=== PATIENT | male | born 1960 | race Caucasian/White ===

== ENCOUNTER 2023-09-17 06:15 | Day surgery (SDC) | payer BC ==
[2023-09-16 10:58] VITALS: BMI 29.0
[2023-09-17] MEDS ORDERED: Protamine Sulfate 50 MG/5 ML VIAL ONE (06:46)
[2023-09-17] MEDS ORDERED: Heparin 10,000 UNITS/ 10 ML VIAL ONE (06:46)
[2023-09-17] MEDS ORDERED: fentaNYL 50 mcg/mL 1 mL Vial ONE ×2 (07:25→09:08)
[2023-09-17] MEDS ORDERED: PROPOFOL 200 MG/20 ML VIAL ONE (07:46)
[2023-09-17] MEDS ORDERED: PHENYLEPHRINE-NS 100 MCG/ML 10 ML SYRINGE ONE (07:46)
[2023-09-17] MEDS ORDERED: Lidocaine 1% PF 5 ML VIAL ONE (07:46)
[2023-09-17] MEDS ORDERED: Dexamethasone 20 MG/5 ML VIAL ONE (07:46)
[2023-09-17] MEDS ORDERED: NEOSTIGMINE 3 MG/3 ML SYR 3 MG/3 ML SYRINGE ONE (07:46)
[2023-09-17] MEDS ORDERED: Glycopyrrolate 0.2 MG/ML 5 ML SYRINGE ONE (07:46)
[2023-09-17] MEDS ORDERED: Rocuronium Bromide 10 MG/ML (10ML VIAL) ONE (07:46)
[2023-09-17] MEDS ORDERED: Ondansetron PF 4 MG/2 ML Vial ONE (07:46)
== END 2023-09-17 10:40 | disposition home or self-care (01) ==
LOC: SDC 06:15
PROVIDERS: ATTEND Internal Medicine Cardiovascular Disease
PROC: 02583ZZ Destruction of Conduction Mechanism, Percutaneous Approach (ICD-10-PCS; principal; 2023-09-17)
DX: I48.3 Typical atrial flutter (principal); I48.0 Paroxysmal atrial fibrillation; I10 Essential (primary) hypertension; G89.29 Other chronic pain; Z88.0 Allergy status to penicillin; Z88.1 Allergy status to other antibiotic agents; Z88.8 Allergy status to other drugs, medicaments and biological substances; Z98.890 Other specified postprocedural states; Z87.891 Personal history of nicotine dependence; Z79.899 Other long term (current) drug therapy; Z79.01 Long term (current) use of anticoagulants; Z92.89 Personal history of other medical treatment
CPT/HCPCS: 93005; 93653; C1731; C1760; C1894; C2630; J1100; J1644; J2405; J2704; J2720; J3010